=== PATIENT | female | born 1970 | race Caucasian/White ===

== ENCOUNTER 2022-10-05 12:27 | Outpatient (CLI) | payer BC, SELFPAY ==
[2022-10-05 15:52] LABS: Cholesterol* 210 mg/dL (90-199)
[2022-10-05 15:53] LABS: Glucose* 98 mg/dL (60-115); HDL Cholesterol* 47 mg/dL (>=50); LDL Cholesterol Calculated 131 mg/dL (<100); Triglycerides* 161 mg/dL (40-149)
== END 2022-10-05 12:28 | disposition home or self-care (01) ==
PROVIDERS: PCP Physician Assistant Medical; Visit Provider Obstetrics & Gynecology
DX: R23.2 Flushing (principal); Z13.1 Encounter for screening for diabetes mellitus; Z13.6 Encounter for screening for cardiovascular disorders
CPT/HCPCS: 80061; 82947; 84443

== ENCOUNTER 2022-10-24 11:14 | Outpatient (CLI) | payer BC, SELFPAY ==
--- NOTE | 2022-10-24 11:30 | CRLHL7_ITS ---
For Patients: As a result of the Century Cures Act, medical imaging exams and procedure reports are released immediately into your electronic medical record. You may view this report before your referring provider. If you have questions, please contact your health care provider. BILATERAL SCREENING MAMMOGRAM WITH COMPUTER-AIDED DETECTION TECHNIQUE: CC and MLO views were obtained. These mammographic images have been obtained using full-field digital technique. These mammographic images were interpreted with the benefit of computer-aided detection. COMPARISON FILM: 07/19/21, 08/28/19, 08/27/18. FINDINGS: The breasts are heterogeneously dense, which may obscure small masses IMPRESSION: There is no radiographic evidence for malignancy. ASSESSMENT: BI-RADS Category 1: Negative RECOMMENDATION: Routine screening mammogram in 1 year. A lay language report of this examination will be provided to the patient. Hemant Taylor M.D. Diagnostic Radiologist [email or web address] Transcribed: 2:28 p.thee cortez/Dictated by: Hemant Taylor MD @ 10/24/2022 12:13:00 PM (Electronically Signed)
== END 2022-10-24 11:15 | disposition home or self-care (01) ==
LOC: MAMMO 11:15
PROVIDERS: PCP Physician Assistant Medical; Visit Provider Obstetrics & Gynecology
DX: Z12.31 Encounter for screening mammogram for malignant neoplasm of breast (principal); R92.2 Inconclusive mammogram
CPT/HCPCS: 77067

== ENCOUNTER 2022-11-14 15:39 | Outpatient (CLI) | payer BC, SELFPAY ==
[2022-11-18 08:57] LABS: Sex Hormone Binding Globulin 29 nmol/L (17-125); Testosterone Bioavailable 7.6 ng/dL (1.5-9.4); Testosterone, Free LC-MS/MS 2.6 pg/mL (0.6-3.8); Testosterone, LC-MS/MS 15 ng/dL (9-55)
== END 2022-11-14 15:40 | disposition home or self-care (01) ==
LOC: NFLDREF 15:41
PROVIDERS: PCP Physician Assistant Medical; Visit Provider Obstetrics & Gynecology
DX: N95.1 Menopausal and female climacteric states (principal); R68.82 Decreased libido
CPT/HCPCS: 84270; 84402; 84403